=== PATIENT | male | born 1965 | race Caucasian/White ===

== ENCOUNTER 2018-10-28 12:10 | Inpatient (IN) | payer OTHER ==
[2018-10-28] MEDS ORDERED: HYDROCODONE/APAP (5/325) TAB PO (13:00)
[2018-10-28] MEDS: DEXTROSE 5%-0.9% NACL 1,000 ML IV ×2 (13:01→23:40)
[2018-10-28 14:22] LABS: ADD MAN DIFF? NO
[2018-10-28 14:25] LABS: WHITE BLOOD COUNT 9.3 10^3/ul (4.8-10.8)
[2018-10-28 14:25] LABS: BASOPHILS % 0.4 % (0.0-2.0); EOSINOPHILS # 0.1 10^3/ul (0.0-0.5); EOSINOPHILS % 1.1 % (0.0-7.0); HEMOGLOBIN 14.6 g/dl (14.0-18.0); LYMPHOCYTES # 1.9 10^3/ul (0.8-2.9); LYMPHOCYTES % 20.8 % (15.0-51.0); MEAN CORPUSCULAR HEMOGLOBIN 28.4 pg (29.0-33.0); MEAN CORPUSCULAR HGB CONC 33.2 g/dl (32.0-37.0); MEAN CORPUSCULAR VOLUME 85.6 fl (82.0-101.0); MEAN PLATELET VOLUME 10.2 fl (7.4-10.4); MONOCYTE # 1.1 10^3/ul (0.3-0.9); NEUTROPHIL # 6.1 10^3/ul (1.6-7.5); NEUTROPHILS % 65.5 % (39.0-77.0); PLATELET COUNT 177 10^3/UL (140-415); RED BLOOD COUNT 5.14 10^6/ul (4.70-6.10); RED CELL DISTRIBUTION WIDTH 12.4 % (11.5-14.5)
[2018-10-28 14:44] LABS: INR 0.98; PROTIME 13.1 Sec (11.9-14.9)
[2018-10-28 14:45] LABS: ANION GAP 11 (5-13); BLOOD UREA NITROGEN 7 mg/dl (7-20); CALCIUM 9.1 mg/dl (8.4-10.2); CARBON DIOXIDE 26 mmol/L (21-31); CHLORIDE 105 mmol/L (97-110); CREATININE 1.04 mg/dl (0.61-1.24); Estimated GFR > 60 mL/min (>60); GLUCOSE 116 mg/dl (70-220); POTASSIUM 3.9 mmol/L (3.5-5.1); SODIUM 142 mmol/L (135-144)
[2018-10-28] MEDS: FAMOTIDINE 20 MG TAB PO (20:18)
[2018-10-28] MEDS: HYDROCODONE/APAP (5/325) TAB PO (23:43)
[2018-10-29] MEDS: FAMOTIDINE 20 MG TAB PO ×2 (09:14→21:17)
[2018-10-29] MEDS: DEXTROSE 5%-0.9% NACL 1,000 ML IV ×2 (09:15→17:44)
[2018-10-29] MEDS: HYDROCODONE/APAP (5/325) TAB PO (22:15)
[2018-10-30] MEDS: DEXTROSE 5%-0.9% NACL 1,000 ML IV ×4 (01:00→22:00)
[2018-10-30] MEDS: FAMOTIDINE 20 MG TAB PO ×2 (08:58→21:57)
[2018-10-30] MEDS: HYDROCODONE/APAP (5/325) TAB PO (21:57)
[2018-10-31] MEDS: DEXTROSE 5%-0.9% NACL 1,000 ML IV (07:07)
[2018-10-31] MEDS: FAMOTIDINE 20 MG TAB PO ×2 (08:39→20:56)
[2018-10-31] MEDS ORDERED: ROCURONIUM 50 MG INJ (11:01)
[2018-10-31] MEDS ORDERED: GLYCOPYRROLATE 0.4 MG INJ (11:01)
[2018-10-31] MEDS ORDERED: DESFLURANE 15 MIN (11:01)
[2018-10-31] MEDS ORDERED: NEOSTIGMINE 3 MG/3 ML SYRINGE (11:01)
[2018-10-31] MEDS ORDERED: MIDAZOLAM 1 MG/ML 2 ML INJ (11:07)
[2018-10-31] MEDS ORDERED: ROPIVACAINE 0.5 % 30 ML VIAL (11:07)
[2018-10-31] MEDS ORDERED: BISACODYL 10 MG SUPP PR (11:30)
[2018-10-31] MEDS ORDERED: POLYETHYLENE GLYCOL 17 GM PACKET PO (11:30)
[2018-10-31] MEDS ORDERED: FENTAnyl 50 MCG/ML VIAL ×3 (11:47→11:57)
[2018-10-31] MEDS ORDERED: LIDOCAINE 100 MG SYRINGE (11:57)
[2018-10-31] MEDS ORDERED: SUCCINYLCHOLINE CHLORIDE 100 MG/5 ML SYG IV (11:57)
[2018-10-31] MEDS ORDERED: CEFAZOLIN 1 GM INJ (11:57)
[2018-10-31] MEDS ORDERED: HYDROmorphONE 1 MG/5 ML IV SYRINGE IV ×3 (14:17→14:30)
[2018-10-31] MEDS ORDERED: ALBUTEROL 0.083% (NEB) 2.5 MG/3 ML AMP HHN (14:30)
[2018-10-31] MEDS ORDERED: DIPHENHYDRAMINE 50 MG INJ IV (14:30)
[2018-10-31] MEDS ORDERED: ONDANSETRON 4 MG INJ IV (14:30)
[2018-10-31] MEDS ORDERED: METOCLOPRAMIDE 10 MG INJ IV (14:30)
[2018-10-31] MEDS ORDERED: FENTAnyl 50 MCG/ML VIAL IV ×3 (14:30)
[2018-10-31] MEDS ORDERED: morphine 2 MG INJ IV ×2 (14:30)
[2018-10-31] MEDS ORDERED: MEPERIDINE 25 MG INJ IV (14:30)
[2018-10-31] MEDS: HYDROmorphONE 1 MG/5 ML IV SYRINGE IV (14:31)
[2018-10-31] MEDS: HYDROmorphONE 0.5 MG/0.5 ML SYG IV ×2 (15:25→18:37)
[2018-10-31] MEDS: MAGNESIUM HYDROXIDE 30ML CUP PO (17:45)
[2018-10-31] MEDS: HYDROCODONE/APAP (5/325) TAB PO ×2 (17:45→22:12)
[2018-10-31] MEDS: CEFAZOLIN 2 GM/50 ML (PMX) 50 ML IVPB (19:47)
[2018-10-31] MEDS: HYDROmorphONE 1 MG/ML SYG IV (20:27)
[2018-10-31] MEDS: DOCUSATE SODIUM 100 MG CAP PO (20:55)
[2018-11-01] MEDS: HYDROmorphONE 0.5 MG/0.5 ML SYG IV (01:12)
[2018-11-01] MEDS: CEFAZOLIN 2 GM/50 ML (PMX) 50 ML IVPB (03:23)
[2018-11-01] MEDS: HYDROCODONE/APAP (5/325) TAB PO ×3 (04:12→22:10)
[2018-11-01 05:15] LABS: ADD MAN DIFF? NO
[2018-11-01 05:23] LABS: BASOPHIL # 0.1 10^3/ul (0.0-0.1); BASOPHILS % 0.5 % (0.0-2.0); EOSINOPHILS # 0.1 10^3/ul (0.0-0.5); EOSINOPHILS % 1.2 % (0.0-7.0); HEMATOCRIT 38.2 % (42.0-52.0); HEMOGLOBIN 13.1 g/dl (14.0-18.0); LYMPHOCYTES # 2.4 10^3/ul (0.8-2.9); LYMPHOCYTES % 23.6 % (15.0-51.0); MEAN CORPUSCULAR HEMOGLOBIN 28.5 pg (29.0-33.0); MEAN CORPUSCULAR HGB CONC 34.3 g/dl (32.0-37.0); MEAN CORPUSCULAR VOLUME 83.2 fl (82.0-101.0); MEAN PLATELET VOLUME 9.9 fl (7.4-10.4); MONOCYTE # 1.3 10^3/ul (0.3-0.9); MONOCYTES % 12.8 % (0.0-11.0); NEUTROPHIL # 6.3 10^3/ul (1.6-7.5); NEUTROPHILS % 61.6 % (39.0-77.0); PLATELET COUNT 181 10^3/UL (140-415); RED BLOOD COUNT 4.59 10^6/ul (4.70-6.10); RED CELL DISTRIBUTION WIDTH 11.9 % (11.5-14.5)
[2018-11-01 05:23] LABS: WHITE BLOOD COUNT 10.2 10^3/ul (4.8-10.8)
[2018-11-01 05:37] LABS: ANION GAP 7 (5-13); BLOOD UREA NITROGEN 11 mg/dl (7-20); CALCIUM 8.5 mg/dl (8.4-10.2); CARBON DIOXIDE 28 mmol/L (21-31); CHLORIDE 104 mmol/L (97-110); CREATININE 1.01 mg/dl (0.61-1.24); Estimated GFR > 60 mL/min (>60); GLUCOSE 114 mg/dl (70-220); POTASSIUM 4.1 mmol/L (3.5-5.1); SODIUM 139 mmol/L (135-144)
[2018-11-01] MEDS: DOCUSATE SODIUM 100 MG CAP PO ×2 (08:21→22:10)
[2018-11-01] MEDS: FAMOTIDINE 20 MG TAB PO ×3 (08:21→22:30)
[2018-11-01] MEDS: SOD CHLORIDE 0.9% 500 ML IV (10:02)
[2018-11-01] MEDS: ONDANSETRON 4 MG TAB PO (10:04)
[2018-11-01] MEDS: MAGNESIUM HYDROXIDE 30ML CUP PO ×2 (18:42→22:30)
[2018-11-02 05:50] LABS: MAGNESIUM 2.5 mg/dl (1.7-2.5)
[2018-11-02 06:15] LABS: ANION GAP 6 (5-13); BLOOD UREA NITROGEN 13 mg/dl (7-20); CALCIUM 8.6 mg/dl (8.4-10.2); CARBON DIOXIDE 31 mmol/L (21-31); CHLORIDE 102 mmol/L (97-110); CREATININE 1.03 mg/dl (0.61-1.24); Estimated GFR > 60 mL/min (>60); GLUCOSE 110 mg/dl (70-220); POTASSIUM 4.3 mmol/L (3.5-5.1); SODIUM 139 mmol/L (135-144)
[2018-11-02] MEDS: ENOXAPARIN 40 MG/0.4 ML SYG SC (09:00)
[2018-11-02] MEDS: POLYETHYLENE GLYCOL 17 GM PACKET PO (09:05)
[2018-11-02] MEDS: DOCUSATE SODIUM 100 MG CAP PO ×2 (09:05→20:59)
[2018-11-02] MEDS: SENNA TAB PO (18:11)
[2018-11-02] MEDS: HYDROCODONE/APAP (5/325) TAB PO (20:59)
[2018-11-02] MEDS: FAMOTIDINE 20 MG TAB PO (20:59)
[2018-11-03] MEDS: DOCUSATE SODIUM 100 MG CAP PO ×2 (09:00→20:18)
[2018-11-03] MEDS: ENOXAPARIN 40 MG/0.4 ML SYG SC (09:00)
[2018-11-03] MEDS: POLYETHYLENE GLYCOL 17 GM PACKET PO (09:00)
[2018-11-03] MEDS: FAMOTIDINE 20 MG TAB PO ×2 (09:00→20:27)
[2018-11-03] MEDS ORDERED: DIPHENHYDRAMINE 50 MG INJ IV (13:30)
[2018-11-03] MEDS ORDERED: ONDANSETRON 4 MG INJ IV (13:30)
[2018-11-03] MEDS ORDERED: FENTAnyl 50 MCG/ML VIAL IV ×3 (13:30)
[2018-11-03] MEDS ORDERED: MEPERIDINE 25 MG INJ IV (13:30)
[2018-11-03] MEDS ORDERED: HYDROmorphONE 1 MG/5 ML IV SYRINGE IV ×2 (13:30)
[2018-11-03] MEDS ORDERED: PROPOFOL 100 ML (13:35)
[2018-11-03] MEDS ORDERED: morphine SULFATE/PF (10 MG/10 ML) INJ (13:35)
[2018-11-03] MEDS ORDERED: MIDAZOLAM 1 MG/ML 2 ML INJ (13:36)
[2018-11-03] MEDS ORDERED: CEFAZOLIN 1 GM INJ (13:54)
[2018-11-03] MEDS ORDERED: KETOROLAC 30 MG INJ (14:07)
[2018-11-03] MEDS ORDERED: ONDANSETRON 4 MG INJ (14:07)
[2018-11-03] MEDS ORDERED: METOCLOPRAMIDE 10 MG INJ (14:07)
[2018-11-03] MEDS: POLYMYXIN/BACITRACIN 1L IRRIG (14:55)
[2018-11-03] MEDS ORDERED: ROPIVACAINE 0.5 % 30 ML VIAL (15:23)
[2018-11-03] MEDS: HYDROmorphONE 1 MG/5 ML IV SYRINGE IV (16:26)
[2018-11-04] MEDS: HYDROCODONE/APAP (5/325) TAB PO ×4 (00:08→19:06)
[2018-11-04] MEDS: FAMOTIDINE 20 MG TAB PO ×2 (08:28→20:24)
[2018-11-04] MEDS: DOCUSATE SODIUM 100 MG CAP PO ×3 (08:28→20:24)
[2018-11-04] MEDS: POLYETHYLENE GLYCOL 17 GM PACKET PO ×2 (08:28→08:34)
[2018-11-04] MEDS: ENOXAPARIN 40 MG/0.4 ML SYG SC (08:32)
[2018-11-04] MEDS: HYDROmorphONE 1 MG/ML SYG IV ×2 (14:46→20:22)
[2018-11-05] MEDS: HYDROmorphONE 1 MG/ML SYG IV ×2 (00:53→05:06)
[2018-11-05] MEDS: HYDROCODONE/APAP (5/325) TAB PO ×2 (06:44→18:08)
[2018-11-05] MEDS: DOCUSATE SODIUM 100 MG CAP PO (08:50)
[2018-11-05] MEDS: POLYETHYLENE GLYCOL 17 GM PACKET PO (08:50)
[2018-11-05] MEDS: FAMOTIDINE 20 MG TAB PO (08:50)
[2018-11-05] MEDS: ENOXAPARIN 40 MG/0.4 ML SYG SC (08:51)
== END 2018-11-05 22:30 | disposition home health service (06) | DRG 504 ==
LOC: MS1 12:10
PROC: 0PSJ04Z Reposition Left Radius with Internal Fixation Device, Open Approach (ICD-10-PCS; 2018-10-31 11:00)
PROC: 0PSL04Z Reposition Left Ulna with Internal Fixation Device, Open Approach (ICD-10-PCS; 2018-10-31 11:00)
PROC: 03QC0ZZ Repair Left Radial Artery, Open Approach (ICD-10-PCS; 2018-10-31 11:00)
PROC: 0QSM04Z Reposition Left Tarsal with Internal Fixation Device, Open Approach (ICD-10-PCS; principal; 2018-10-31 11:10)
DX: S92.062A Displaced intraarticular fracture of left calcaneus, initial encounter for closed fracture (principal); S52.572A Other intraarticular fracture of lower end of left radius, initial encounter for closed fracture; I97.52 Accidental puncture and laceration of a circulatory system organ or structure during other procedure; S65.112A Laceration of radial artery at wrist and hand level of left arm, initial encounter; S52.612A Displaced fracture of left ulna styloid process, initial encounter for closed fracture; K59.00 Constipation, unspecified; W11.XXXA Fall on and from ladder, initial encounter; Y83.8 Other surgical procedures as the cause of abnormal reaction of the patient, or of later complication, without mention of misadventure at the time of the procedure; Y92.234 Operating room of hospital as the place of occurrence of the external cause
CPT/HCPCS: 71045; 73110-LT; 73630-LT; 73650-LT; 73700; 80048; 83735; 85025; 85610; 93005; 97110; 97116; 97161; 97167; 97530